=== PATIENT | male | born 1975 | race Caucasian/White ===

== ENCOUNTER → 2016-11-23 | Outpatient (CLI) | payer SELFPAY ==
--- NOTE | 2016-11-26 08:36 | RAD ---
EXAM DESCRIPTION: Chest,2 Views CLINICAL HISTORY: 41 years Male, CHEST PAIN, DYSPNEA COMPARISON: 04/04/2016 IMPRESSION: The heart remains borderline enlarged, with mild prominence of the central pulmonary vasculature. There is no confluent airspace consolidation, pleural effusion, or pneumothorax. No acute osseous abnormality. Electronically signed by: Ifeanyi Cancino MD 11/26/2016 8:35 AM CDT
== END | disposition home or self-care (01) ==
LOC: YCFC.O 16:41
PROVIDERS: ATTEND Nurse Practitioner Family
DX: R06.00 Dyspnea, unspecified (principal); R60.0 Localized edema; R07.9 Chest pain, unspecified

== ENCOUNTER 2016-12-21 12:31 | Inpatient (IN) | payer SELFPAY ==
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
--- NOTE | 2016-12-21 14:01 | RAD ---
EXAM DESCRIPTION: Chest,2 Views CLINICAL HISTORY: cough/hypoxia COMPARISON: November 23, 2016 FINDINGS: Two-view chest x-ray shows mild enlargement of the cardiac silhouette without pulmonary vascular congestion. The lungs are normally aerated and clear. Costophrenic angles are sharp. Osseous structures are unremarkable IMPRESSION: No radiographic evidence of acute cardiopulmonary disease. Electronically signed by: Raleigh Mahoney MD 12/21/2016 2:00 PM CDT
[2016-12-21] MEDS ORDERED: SODIUM CHLORIDE 0.9% 1000ML 1,000 ML IVS ONE (14:05)
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
[2016-12-21] MEDS ORDERED: ALBUTEROL SULFATE 2.5 MG/3 ML VIAL NEB PRN (18:22)
[2016-12-21] MEDS ORDERED: IV SET AND CAP CHANGE INJ INJ SCH (18:30)
[2016-12-21] MEDS ORDERED: methylPREDNISolone SODIUM SUC 125 MG/2 ML VIAL IV ONE (19:14)
[2016-12-21] MEDS ORDERED: HYDROcodone 7.5MG/APAP 325MG 1 EA TAB PO PRN (19:17)
[2016-12-21] MEDS ORDERED: ENOXAPARIN SODIUM 30 MG/0.3 ML SYG SUBCU SCH (19:30)
[2016-12-21] MEDS ORDERED: PANTOPRAZOLE SODIUM IV 40 MG VIAL IV SCH (19:30)
[2016-12-21] MEDS: levoFLOXacin 500MG IV 500 MG in PREMIX BAG 1 BAG IVPB SCH (19:30)
[2016-12-21] MEDS ORDERED: levoFLOXacin 500MG IV 100 ML IVPB ONE (19:33)
[2016-12-21] MEDS ORDERED: IPRATROPIUM/ALBUTEROL 3 ML VIAL INH SCH (20:00)
[2016-12-21] MEDS ORDERED: SODIUM CHLORIDE 0.9% 10 ML VIAL ONE (20:27)
[2016-12-21] MEDS: IPRATROPIUM/ALBUTEROL 3 ML VIAL INH SCH (20:42)
[2016-12-21] MEDS: SODIUM CHLORIDE 0.9% (FLUSH) 10 ML SYG IV PRN (21:39)
[2016-12-21] MEDS ORDERED: BISACODYL TAB 5 MG TAB PO SCH (22:14)
[2016-12-21] MEDS ORDERED: MORPHINE ER 15 MG TAB PO SCH (22:30)
[2016-12-21] MEDS: busPIRone HCL 5 MG TAB PO SCH (22:36)
[2016-12-21] MEDS ORDERED: QUEtiapine FUMARATE 100 MG TAB ONE (23:21)
[2016-12-21] MEDS ORDERED: QUEtiapine FUMARATE 100 MG TAB PO SCH (23:30)
[2016-12-21] MEDS ORDERED: ESCITALOPRAM 10 MG TAB PO SCH (23:30)
[2016-12-22] MEDS ORDERED: LORazepam 0.5 MG TAB PO PRN
[2016-12-22] MEDS ORDERED: MORPHINE ER 15 MG TAB PO SCH
[2016-12-22] MEDS ORDERED: BISACODYL TAB 5 MG TAB PO SCH
[2016-12-22] MEDS ORDERED: busPIRone HCL 5 MG TAB PO SCH
[2016-12-22] MEDS: IPRATROPIUM/ALBUTEROL 3 ML VIAL INH SCH ×2 (00:21→04:50)
--- NOTE | 2016-12-22 07:32 | RAD ---
EXAM: Two view chest. INDICATION: Chest pain. COMPARISON: Chest x-ray: 12/21/2016. FINDINGS: Cardiac silhouette: Enlarged Sully: Unremarkable. Lobar consolidation: None. Pleural effusion: None. Pneumothorax: None. Other: None. Bones: Unremarkable. Other: None. IMPRESSION: 1. No acute cardiopulmonary process. Electronically signed by: Theo Garcia MD 12/22/2016 7:31 AM CDT
[2016-12-22] MEDS ORDERED: busPIRone HCL 5 MG TAB ONE (08:23)
[2016-12-22] MEDS: IPRATROPIUM/ALBUTEROL 3 ML VIAL NEB SCH ×5 (08:25→21:05)
[2016-12-22] MEDS: FUROSEMIDE 40 MG TAB PO SCH (08:30)
[2016-12-22] MEDS: ENOXAPARIN SODIUM 30 MG/0.3 ML SYG SUBCU SCH (08:30)
[2016-12-22] MEDS: DOCUSATE SODIUM 100 MG CAP PO SCH (08:30)
[2016-12-22] MEDS: FENOFIBRIC ACID 135 MG CAP PO SCH (08:30)
[2016-12-22] MEDS: QUEtiapine FUMARATE 100 MG TAB PO SCH ×2 (08:30→21:13)
[2016-12-22] MEDS: LISINOPRIL 10 MG TAB PO SCH (08:30)
[2016-12-22] MEDS: ESCITALOPRAM 10 MG TAB PO SCH (08:31)
[2016-12-22] MEDS: busPIRone HCL 5 MG TAB PO SCH ×2 (08:31→21:12)
[2016-12-22] MEDS: MORPHINE ER 15 MG TAB PO SCH ×2 (08:31→21:14)
[2016-12-22] MEDS: SODIUM CHLORIDE 0.9% (FLUSH) 10 ML SYG IV SCH ×2 (08:42→19:59)
[2016-12-22] MEDS ORDERED: QUEtiapine FUMARATE 100 MG TAB PO SCH (09:00)
[2016-12-22] MEDS: HYDROcodone 7.5MG/APAP 325MG 1 EA TAB PO PRN ×3 (09:07→21:30)
[2016-12-22] MEDS ORDERED: NON-FORMULARY MEDICATION 1 EA MIS (Fexofenadine Hcl [Allegra Allergy] 180 MG) PO SCH (12:00)
[2016-12-22] MEDS ORDERED: NON-FORMULARY MEDICATION 1 EA MIS (Potassium Chloride [Micro-K] 8 MEQ) PO SCH (12:00)
[2016-12-22] MEDS ORDERED: ESCITALOPRAM 10 MG TAB PO SCH (12:00)
[2016-12-22] MEDS: LORazepam 0.5 MG TAB PO PRN ×2 (13:28→21:11)
[2016-12-22] MEDS ORDERED: DEXTROSE 50% 25 GM/50 ML SYG IV PRN (14:40)
[2016-12-22] MEDS ORDERED: GLUCAGON INJ 1 MG VIAL SUBCU PRN (14:40)
[2016-12-22] MEDS: methylPREDNISolone SODIUM SUC 125 MG/2 ML VIAL IV SCH ×2 (14:53→23:25)
[2016-12-22] MEDS ORDERED: methylPREDNISolone SODIUM SUC 125 MG/2 ML VIAL ONE ×2 (14:53→18:22)
--- NOTE | 2016-12-22 16:35 | PN ---
DATE: 12/22/16 SUPERVISING PHYSICIAN: Ruiz Willett M.D. SUBJECTIVE: The patient is sitting up in his bed watching television. States he feels much better and much improved since yesterday. In fact at this point, he was not even wearing his oxygen. Denies chest pain, shortness of breath, abdominal pain, nausea or vomiting, dizziness or headache. OBJECTIVE: VITAL SIGNS: He is afebrile, heart rate 99, blood pressure 126/73, respiratory rate 20, O2 sats dropped down to 87% on room air and after applying the oxygen it is up to around 92%. RESPIRATORY: Diminished breath sounds throughout especially at the bases. CARDIAC: Regular rate and rhythm. ABDOMEN : Soft, nondistended, non-tender. Bowel sounds are positive. EXTREMITIES: No cyanosis or clubbing. There is a trace of pedal edema on bilateral lower extremities. NEUROLOGIC: He is awake, alert and oriented times three. LABORATORY: WBCs have dropped to 13.5, hemoglobin 10.7, hematocrit 33.3, neutrophils 94. Chloride 100, glucose 178, alkaline phosphatase 38. Flu swab is negative. Preliminary blood culture, sputum culture and urine culture are no growth after 24 hours. Chest x-ray shows no acute cardiopulmonary processes. All other labs and films have been reviewed via the EMR. ASSESSMENT: 1. Acute exacerbation of chronic obstructive pulmonary disease. 2. Acute bronchitis. 3. Febrile illness. 4. Acute renal failure with a baseline creatinine of 1. He has a history of acute renal failure with multiple hospital admissions. 5. History of endocarditis about 3 years ago. 6. Hepatitis C. 7. Rheumatoid arthritis. 8. History of IV drug abuse. He has been drug free for 3 years. 9. History of tobacco abuse. 10. Depression and anxiety. 11. Gastroesophageal reflux disease. 12. History of chronic pain currently on multiple narcotic pain medications. PLAN: We will continue present supportive care, monitor his cultures. I have added lab for in the morning. He will continue with good pulmonary hygiene. His steroids are being tapered down and hopefully tomorrow he can go to oral steroids. We will continue to monitor the patient closely and followup as needed. #[id number] [facility]
[2016-12-22] MEDS: INSULIN LISPRO 100 UNITS/ML PEN SUBCU SCH ×2 (17:18→21:00)
[2016-12-22] MEDS ORDERED: levoFLOXacin 500MG IV 100 ML IVPB ONE (17:26)
--- NOTE | 2016-12-22 19:10 | PCM.CORE ---
Physician DVT/VTE - Prophylaxis Currently: Patient already on anticoagulation therapy - Nurse DVT Assessment & Total Each Risk Factor Represents 3 Points: Medical PT with Hx of SD, CHF, Severe infection/sepsis DVT Assessment Score: 3 - 5 or more Very High Risk Treatments: Early Ambulation *, Sequential Compression Device
[2016-12-22] MEDS: levoFLOXacin 500MG IV 500 MG in PREMIX BAG 1 BAG IVPB SCH (20:00)
[2016-12-22] MEDS ORDERED: QUETIAPINE FUMARATE 150 MG PO SCH (21:00)
[2016-12-22] MEDS: SODIUM CHLORIDE 0.9% (FLUSH) 10 ML SYG IV PRN ×2 (21:15→23:25)
[2016-12-22] MEDS: PANTOPRAZOLE SODIUM IV 40 MG VIAL IV SCH (21:15)
[2016-12-23] MEDS: IPRATROPIUM/ALBUTEROL 3 ML VIAL NEB SCH ×3 (04:45→13:30)
[2016-12-23] MEDS: SODIUM CHLORIDE 0.9% (FLUSH) 10 ML SYG IV PRN ×2 (06:27→21:37)
[2016-12-23] MEDS: methylPREDNISolone SODIUM SUC 125 MG/2 ML VIAL IV SCH (06:27)
[2016-12-23] MEDS: INSULIN LISPRO 100 UNITS/ML PEN SUBCU SCH ×4 (07:29→21:35)
[2016-12-23] MEDS: HYDROcodone 7.5MG/APAP 325MG 1 EA TAB PO PRN ×4 (08:05→22:15)
[2016-12-23] MEDS: busPIRone HCL 5 MG TAB PO SCH ×2 (08:59→21:31)
[2016-12-23] MEDS: MORPHINE ER 15 MG TAB PO SCH ×2 (08:59→21:34)
[2016-12-23] MEDS: LISINOPRIL 10 MG TAB PO SCH (09:00)
[2016-12-23] MEDS: FUROSEMIDE 40 MG TAB PO SCH (09:00)
[2016-12-23] MEDS: FENOFIBRIC ACID 135 MG CAP PO SCH (09:01)
[2016-12-23] MEDS: QUEtiapine FUMARATE 100 MG TAB PO SCH ×2 (09:01→21:32)
[2016-12-23] MEDS: ESCITALOPRAM 10 MG TAB PO SCH (09:01)
[2016-12-23] MEDS: ENOXAPARIN SODIUM 30 MG/0.3 ML SYG SUBCU SCH (09:02)
[2016-12-23] MEDS: SODIUM CHLORIDE 0.9% (FLUSH) 10 ML SYG IV SCH ×2 (09:02→20:27)
[2016-12-23] MEDS: DOCUSATE SODIUM 100 MG CAP PO SCH (09:02)
[2016-12-23] MEDS: LORazepam 0.5 MG TAB PO PRN ×2 (09:15→21:33)
--- NOTE | 2016-12-23 12:45 | PN ---
DATE: 12/23/16 SUPERVISING PHYSICIAN: Ruiz Willett M.D. SUBJECTIVE: The patient is asleep in his hospital bed. He is in no acute distress. He awakens easily. Continues complaints of occasional coughing and shortness of breath, especially with exertion, but he is feeling much improved. He denies any chest pain, abdominal pain, nausea or vomiting. OBJECTIVE: VITAL SIGNS: He is afebrile, heart rate 88, blood pressure 127/72, respiratory rate 20, O2 sat is 93% on 3 liters nasal cannula. RESPIRATORY: Diminished at the bases, otherwise essentially clear to auscultation. CARDIAC: Regular rate and rhythm. ABDOMEN: Soft, nondistended, non-tender. Bowel sounds are positive. NEUROLOGIC: He is awake, alert and oriented times three. LABORATORY: WBCs have decreased slightly to 15.5, H&H is stable at 10.6 and 33.3, neutrophils 91.7. Chemistry is basically within normal limits with the exception of his glucose which has run between 146 and 168 which is most likely due to his steroids. His preliminary sputum culture shows gram-negative rods, but his preliminary blood cultures are negative to date. All other labs and films have been reviewed via the EMR. ASSESSMENT: 1. Acute exacerbation of chronic obstructive pulmonary disease. 2. Acute bronchitis. 3. Febrile illness. 4. Acute renal failure with a baseline creatinine of 1. He has a history of acute renal failure with multiple hospital admissions. 5. History of endocarditis about 3 years ago. 6. Hepatitis C. 7. Rheumatoid arthritis. 8. History of IV drug abuse. He has been drug free for 3 years. 9. History of tobacco abuse. 10. Depression and anxiety. 11. Gastroesophageal reflux disease. 12. History of chronic pain currently on multiple narcotic pain medications. PLAN: We will continue present supportive care, including his antibiotics of Levaquin. We will monitor his cultures for sensitivities and change antibiotics as needed. Will order a chest x-ray and lab in the morning. I have decreased his steroids slightly. I have also ordered an ambulatory study daily. I have already consulted [employer] Master and hopefully Narda can facilitate his disability paperwork. We will continue to monitor the patient closely and followup as needed. Dr. Willett is the collaborating physician available for consultation. #[id number] [facility]
[2016-12-23] MEDS: methylPREDNISolone SODIUM SUC 40 MG/ML VIAL IV SCH ×2 (14:21→20:27)
[2016-12-23] MEDS: LEVALBUTEROL NEBS 1.25 MG/3 ML VIAL NEB PRN ×3 (16:22→23:30)
[2016-12-23] MEDS ORDERED: levoFLOXacin 500MG IV 100 ML IVPB ONE (19:52)
[2016-12-23] MEDS: levoFLOXacin 500MG IV 500 MG in PREMIX BAG 1 BAG IVPB SCH (20:17)
[2016-12-23] MEDS: PANTOPRAZOLE SODIUM IV 40 MG VIAL IV SCH (21:34)
[2016-12-24] MEDS: SODIUM CHLORIDE 0.9% (FLUSH) 10 ML SYG IV PRN (01:53)
[2016-12-24] MEDS: methylPREDNISolone SODIUM SUC 40 MG/ML VIAL IV SCH ×2 (01:53→09:20)
[2016-12-24] MEDS: LEVALBUTEROL NEBS 1.25 MG/3 ML VIAL NEB PRN ×2 (04:20→09:30)
[2016-12-24] MEDS: HYDROcodone 7.5MG/APAP 325MG 1 EA TAB PO PRN (05:27)
--- NOTE | 2016-12-24 07:03 | RAD ---
EXAM: Two view chest. INDICATION: Chest pain. COMPARISON: Chest x-ray: 12/22/2016. FINDINGS: Cardiac silhouette: Mildly enlarged Sully: Unremarkable. Lobar consolidation: None. Pleural effusion: None. Pneumothorax: None. Other: None. Bones: Unremarkable. Other: None. IMPRESSION: 1. No acute cardiopulmonary process. Electronically signed by: Theo Garcia MD 12/24/2016 7:02 AM CDT
[2016-12-24] MEDS: INSULIN LISPRO 100 UNITS/ML PEN SUBCU SCH ×2 (07:58→11:31)
[2016-12-24] MEDS ORDERED: HYDROcodone 7.5MG/APAP 325MG 1 EA TAB PO PRN (09:11)
[2016-12-24] MEDS: DOCUSATE SODIUM 100 MG CAP PO SCH (09:21)
[2016-12-24] MEDS: ESCITALOPRAM 10 MG TAB PO SCH (09:21)
[2016-12-24] MEDS: MORPHINE ER 15 MG TAB PO SCH (09:21)
[2016-12-24] MEDS: LISINOPRIL 10 MG TAB PO SCH (09:22)
[2016-12-24] MEDS: QUEtiapine FUMARATE 100 MG TAB PO SCH (09:22)
[2016-12-24] MEDS: ENOXAPARIN SODIUM 30 MG/0.3 ML SYG SUBCU SCH (09:22)
[2016-12-24] MEDS: busPIRone HCL 5 MG TAB PO SCH (09:22)
[2016-12-24] MEDS: FENOFIBRIC ACID 135 MG CAP PO SCH (09:22)
[2016-12-24] MEDS: FUROSEMIDE 40 MG TAB PO SCH (09:22)
[2016-12-24] MEDS: SODIUM CHLORIDE 0.9% (FLUSH) 10 ML SYG IV SCH (09:23)
[2016-12-24 10:10] VITALS: BP 151/79; TEMP 97.2; O2SAT 100
--- NOTE | 2016-12-24 10:45 | DS ---
DISCHARGE DIAGNOSIS: 1. Chronic obstructive pulmonary disease with an acute exacerbation requiring parental anti-inflammatories as well as bronchodilators and respiratory pulmonary hygiene. 2. Acute bronchitis with culture-proven Klebsiella pneumoniae requiring parenteral antibiotic therapy, to be continued orally. 3. Febrile illness, improved. 4. Acute renal failure, showing improvement after hydration. 5. History of incidences of infectious endocarditis about 3 years ago, requiring prolonged IV therapy. 6. History of hepatitis C, chronically. 7. Chronic rheumatoid arthritis. 8. History of IV drug abuse, now drug free for 3 years. 9. History of chronic tobacco abuse, now stopped. 10. Chronic depression and anxiety, on medication support. 11. History of gastroesophageal reflux disease. 12. History of chronic pain currently on multiple narcotic pain medications and encouraged to minimize. HOSPITAL COURSE: This 41-year-old, white male was admitted to the hospital from the Emergency Room because of an elevated temperature of 102 degrees starting the night before admission. Fairly significant cough with shortness of breath, wheezing was evident. Some nausea with dry heaving also present and acute renal injury noted on initial examination with creatinine of 2.19. His Beta natriuretic peptide was slightly elevated at 171 and white count elevated at almost 19,000. Chest x-ray showed no evidence of an acute cardiopulmonary process, yet the patient has need for significant intervention. Blood cultures were obtained, especially with the history of endocarditis. LABORATORY: Initial white count was 18,800, decreasing to 14,300 with hemoglobin 11.5 and normal platelet count. Neutrophils were 88%. D-dimer was below 230. Chemistries showed potassium 4.1 at discharge with CO2 33. Creatinine decreased from 2.19 fairly rapidly down to 0.85. Glucose 147 fasting on discharge. Lactic acid 0.7. Beta natriuretic peptide 171, albumin 3.7. Urinalysis generally clean and group A strep DNA negative. Blood cultures as well as group A strep throat cultures, urine culture negative. Sputum culture did reveal Klebsiella pneumoniae, sensitive to the fluoroquinolones. Chest x-ray shows no evidence of an acute pulmonary infiltrate or process. HOSPITAL COURSE: The patient was treated in the hospital with parenteral antibiotic therapy for 3 days and showed improvement with fairly large doses of corticosteroids required. Steroids will eventually be tapered in the outpatient department and followed closely. He will be continued on the antibiotics for his acute bronchitis based on culture and sensitivity. He will be continued on his bronchodilators. He was ready for outpatient followup with Dr. Mcgowan at the time of discharge. PLAN: The patient will have followup with Dr. Mcgowan in the clinic in a week or sooner. He will continue with his home medications and encouraged to decrease some of the opioids for chronic pain relief. Continue on Ventolin inhaler 1 puff q.i.d. for bronchodilation. Continue Levaquin 500 mg daily, #7 tablets given. Prednisone to be taken 10 mg 2 every morning for the next 5 to 6 days and then decrease to only 10 mg daily. He will avoid concentrated sugars in his diet. Return if not improving. Close followup is necessary. #[id number] [facility]
== END 2016-12-24 11:52 | disposition home or self-care (01) | DRG 191 ==
LOC: ER 12:31 → MS 16:28
PROVIDERS: ADMIT Nurse Practitioner Acute Care; ATTEND Emergency Medicine
DX: J44.1 Chronic obstructive pulmonary disease with (acute) exacerbation (principal); N17.9 Acute kidney failure, unspecified; Z68.42 Body mass index [BMI] 45.0-49.9, adult; J44.0 Chronic obstructive pulmonary disease with (acute) lower respiratory infection; J20.8 Acute bronchitis due to other specified organisms; R09.02 Hypoxemia; B96.1 Klebsiella pneumoniae [K. pneumoniae] as the cause of diseases classified elsewhere; B18.2 Chronic viral hepatitis C; M06.9 Rheumatoid arthritis, unspecified; F32.9 Major depressive disorder, single episode, unspecified; F41.9 Anxiety disorder, unspecified; G89.29 Other chronic pain; I10 Essential (primary) hypertension; K21.9 Gastro-esophageal reflux disease without esophagitis; Z79.891 Long term (current) use of opiate analgesic; E78.5 Hyperlipidemia, unspecified; E66.01 Morbid (severe) obesity due to excess calories; Z87.891 Personal history of nicotine dependence; Z86.79 Personal history of other diseases of the circulatory system; Z79.82 Long term (current) use of aspirin; Z79.899 Other long term (current) drug therapy; Z86.14 Personal history of Methicillin resistant Staphylococcus aureus infection

== ENCOUNTER → 2017-07-23 | Outpatient (CLI) | payer SELFPAY ==
--- NOTE | 2017-07-23 16:54 | RAD ---
EXAM: Chest,2 Views CLINICAL INDICATION: 41-year-old male with angina. TECHNIQUE: Two-view, PA and lateral projections of the chest were obtained. COMPARISON: 12/24/2016. FINDINGS: Stable cardiac and mediastinal silhouette. Heart size is normal. Lungs are clear without focal opacity, pneumothorax or pleural effusions. The visualized bones are within normal limits. IMPRESSION: No acute cardiopulmonary abnormalities. Electronically signed by: Akosua Driscoll MD 07/23/2017 4:53 PM [employer] Workstation: [id number]
== END | disposition home or self-care (01) ==
LOC: YCFC.O 15:52
PROVIDERS: ATTEND Nurse Practitioner Family
DX: R60.0 Localized edema (principal); I20.9 Angina pectoris, unspecified

== ENCOUNTER 2017-09-20 01:30 | Observation (INO) | payer SELFPAY ==
[2017-09-20] MEDS ORDERED: NITROGLYCERIN 0.4 MG 25 EA TAB SL ONE ×2 (01:46)
[2017-09-20] MEDS ORDERED: ASPIRIN TABLET 325 MG TAB PO ONE (01:46)
[2017-09-20] MEDS ORDERED: SODIUM CHLORIDE 0.9% (FLUSH) 10 ML SYG IV PRN ×2 (01:46→09:47)
--- NOTE | 2017-09-20 01:46 | ED.PDOC ---
History of Present Illness - General Chief Complaint: Chest Pain/AK Stated Complaint: chest pain Time Seen by Provider: 09/20/17 01:45 Source: patient Exam Limitations: no limitations - History of Present Illness Initial Comments: Hermilo Porter 42 y/o male bought by dad with sharp pain between his shoulder blades for the last 1-2 days taking deep breaths and goes away taking nitroglycerin which is not his routine medication lasting for about 2-3 minutes which had been intermittent initially but today getting more frequent took about 4 doses of nitroglycerin which gave him some relief but recurred again so he decided to be brought to ER by POV.Had 2 episodes of endocarditis 2 years ago and was transferred to a [facility] and JOCELYNN was done which showed it.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 Severity/Quality: sharp Location: other - interscapular area Chest Pain Radiation: other - chest Activities at Onset: activity - when it first started Prior Chest Pain/Cardiac Workup: echocardiography Improving Factors: nothing Worsening Factors: nothing Nitro Today/Relief: 0.4 mg x 4 Aspirin Treatment Today: 81 mg x 1 Associated Symptoms: shortness of breath Allergies/Adverse Reactions: Allergies Cephalosporins Allergy (Verified 09/23/15 18:48) Unknown Penicillins Allergy (Verified 09/23/15 18:48) Hives Home Medications: Ambulatory Orders Lisinopril 10 mg PO DAILY 01/10/14 Fexofenadine HCl [Adenike Allergy] 180 mg PO DAILY@119909/23/15 Furosemide [Lasix] 40 mg PO DAILY 09/23/15 Morphine Sulfate [Morphine Sulfate ER] 15 mg PO BID 09/23/15 Aspirin [Aspirin EC Low Dose] 81 mg PO DAILY@119904/04/16 Escitalopram [Lexapro] 15 mg PO DAILY@119904/04/16 Fenofibrate [Tricor] 145 mg PO DAILY@119904/04/16 HYDROcodone 7.5MG/APAP 325MG [[place] 7.5/325] 1 - 2 tab PO .Q4-6H PRN 04/04/16 Lorazepam 0.5 mg PO BID PRN 04/04/16 Omeprazole [Prilosec Cap] 20 mg PO DAILY@119904/04/16 busPIRone HCL [Buspar] 22.5 mg PO BID 04/04/16 Docusate Sodium [Colace] 100 mg PO DAILY 12/22/16 QUEtiapine FUMARATE [Seroquel] 100 mg PO DAILY 12/22/16 Quetiapine Fumarate [Seroquel] 150 mg PO BEDTIME 12/22/16 Albuterol Inhaler [Ventolin Hfa Inhaler] 1 puff INH QID #1 inh 12/24/16 levoFLOXacin [Levaquin] 500 mg PO QAM #7 tab 12/24/16 predniSONE [Prednisone] 20 mg PO QAM #20 tab 12/24/16 Review of Systems - Review of Systems Constitutional: States: no symptoms reported EENTM: States: no symptoms reported Respiratory: States: see HPI Cardiology: States: see HPI Gastrointestinal/Abdominal: States: no symptoms reported Genitourinary: States: no symptoms reported Musculoskeletal: States: joint pain - rheumatoid arthritis Skin: States: no symptoms reported Neurological: States: no symptoms reported Past Medical History (General) - Patient Medical History Hx Seizures: No Hx Stroke: No Hx Dementia: No Hx Asthma: No Hx of COPD: Yes Hx Cardiac Disorders: Yes - endocarditis Hx Congestive Heart Failure: No Hx Pacemaker: No Hx Hypertension: Yes Hx Thyroid Disease: No Hx Diabetes: No Hx Gastroesophageal Reflux: Yes Hx Renal Disease: Yes - CKD 3 Hx Cancer: No Hx of HIV: No Hx Hepatitis C: Yes Hx MRSA: Yes Hx Other PMH: Yes - rheumatoid arthritis MRSA Source:: heart Surgical History: other - tendon repair right forearm - Vaccination History Hx Tetanus, Diphtheria Vaccination: No Hx Influenza Vaccination: Yes Hx Pneumococcal Vaccination: No - Social History Hx Tobacco Use: Yes Hx Chewing Tobacco Use: No Hx Alcohol Use: No Hx Substance Use: No Hx Substance Use Treatment: No Hx Depression: Yes Hx Physical Abuse: No Hx Emotional Abuse: No Hx Suspected Abuse: No - Activities of Daily Living Patient Lives Alone: No - family - Female History Patient : No Family Medical History - Family History Father Family History: No Known Living Status: Still Living Hx Family Asthma: No Hx Family Congestive Heart Failure: Yes Hx Family Hypertension: Yes Hx Family Stroke: No Hx Cardiac Disease: Yes - dad-CABG age 36 Hx Family Diabetes: No Hx Family Cancer: No Hx Family;Other: Mom-Lupus Physical Exam - Physical Exam General Appearance: Alert, Comfortable, No apparent distress Eyes, Ears, Nose, Throat Exam: PERRL/EOMI, normal ENT inspection, pharynx normal Neck: non-tender, full range of motion, supple Respiratory: lungs clear, normal breath sounds, no respiratory distress Cardiovascular/Chest: normal peripheral pulses, regular rate, rhythm, no murmur Peripheral Pulses: radial,right: 2+, radial,left: 2+ Gastrointestinal/Abdominal: normal bowel sounds, non tender, soft Extremity: no pedal edema, no calf tenderness Neurologic: alert, normal mood/affect, oriented x 3 Skin Exam: normal color, warm/dry Progress - Progress Progress: 09/20/17 02:21 Last Vital Signs Temp 97.9 F 09/20/17 01:30 Pulse 115 H 09/20/17 01:30 Resp 18 09/20/17 01:30 BP 115/74 09/20/17 01:30 Pulse Ox 95 09/20/17 01:30 - Results/Orders Results/Orders: Laboratory Tests 09/20/17 09/20/17 09/20/17 02:00 02:00 02:00 WBC 11.8 H RBC 4.79 Hgb 12.8 L Hct 39.1 L MCV 81.6 MCH 26.7 L MCHC 32.9 L RDW 13.9 Plt Count 233 MPV 10.1 Absolute Neuts (auto) 10.20 H Absolute Lymphs (auto) 0.80 L Absolute Monos (auto) 0.60 Absolute Eos (auto) 0.10 Absolute Basos (auto) 0.00 Neutrophils % 86.3 H Lymphocytes % 6.8 L Monocytes % 5.4 Eosinophils % 1.2 Basophils % 0.3 PT 11.9 INR 1.050 PTT (SP) 32.3 D-Dimer, Quantitative < 230 Sodium 135 Potassium 4.6 Chloride 94 L Carbon Dioxide 30 Anion Gap 15.6 BUN 19 H Creatinine 3.47 H BUN/Creatinine Ratio 5.5 L Random Glucose 120 H Serum Osmolality 273.6 L Calcium 9.5 Phosphorus 5.8 H Magnesium 2.0 Total Bilirubin 0.3 Direct Bilirubin 0.1 Indirect Bilirubin 0.2 AST 21 ALT 13 Alkaline Phosphatase 37 L Creatine Kinase 110 CK-MB (CK-2) 1.4 CK-MB (CK-2) % Not Reportable Troponin I < 0.02 B-Natriuretic Peptide 7.1 Serum Total Protein 8.2 Albumin 4.6 - EKG/XRAY/CT EKG: Sinus, Tachy, Unchanged from - 03/12/2016 XRAY: chest - no acute abnormalities - Additional EKG/XRAY/Consults EKG #2: Sinus, Tachy, Unchanged from - 09/20/2017 Comments: HR-113;T-wave inversion anterolateral leads Departure - Departure Clinical Impression: Dehydration, History of bacterial endocarditis Acute on chronic renal failure Qualifiers: Acute renal failure type: unspecified Chronic kidney disease stage: stage 3 ( moderate) Qualified Code(s): N17.9 - Acute kidney failure, unspecified Chest pain Qualifiers: Chest pain type: unspecified Qualified Code(s): R07.9 - Chest pain, unspecified Time of Disposition: 05:34 Disposition: Admit Patient Condition: Fair Departure Forms: Patient Portal Self Enrollment Referrals: Jorge Mcgowan MD [Primary Care Provider] - 1-2 Weeks Home Medications: Ambulatory Orders Lisinopril 10 mg PO DAILY 01/10/14 Fexofenadine HCl [Adenike Allergy] 180 mg PO DAILY@119909/23/15 Furosemide [Lasix] 40 mg PO DAILY 09/23/15 Morphine Sulfate [Morphine Sulfate ER] 15 mg PO BID 09/23/15 Aspirin [Aspirin EC Low Dose] 81 mg PO DAILY@119904/04/16 Escitalopram [Lexapro] 15 mg PO DAILY@119904/04/16 Fenofibrate [Tricor] 145 mg PO DAILY@119904/04/16 HYDROcodone 7.5MG/APAP 325MG [[place] 7.5/325] 1 - 2 tab PO .Q4-6H PRN 04/04/16 Lorazepam 0.5 mg PO BID PRN 04/04/16 Omeprazole [Prilosec Cap] 20 mg PO DAILY@119904/04/16 busPIRone HCL [Buspar] 22.5 mg PO BID 04/04/16 Docusate Sodium [Colace] 100 mg PO DAILY 12/22/16 QUEtiapine FUMARATE [Seroquel] 100 mg PO DAILY 12/22/16 Quetiapine Fumarate [Seroquel] 150 mg PO BEDTIME 12/22/16 Albuterol Inhaler [Ventolin Hfa Inhaler] 1 puff INH QID #1 inh 12/24/16 levoFLOXacin [Levaquin] 500 mg PO QAM #7 tab 12/24/16 predniSONE [Prednisone] 20 mg PO QAM #20 tab 12/24/16 Decision To Admit - Decistion To Admit Decision to Admit Reason: Admit from ER - exacerbation of his chronic renal failure and unspecified chest pains Decision to Admit Date: 09/20/17 Decision to Admit Time: 05:28 - D/W Lauren cJ-FABRICE/Hospitalist
--- NOTE | 2017-09-20 02:25 | RAD ---
EXAM: Single view chest. INDICATION: Chest pain. COMPARISON: Chest x-ray: 07/23/2017. FINDINGS: Cardiac silhouette: Unremarkable. Sully: Unremarkable. Lobar consolidation: None. Pleural effusion: None. Pneumothorax: None. Other: None. Bones: Unremarkable. Other: None. IMPRESSION: 1. No acute cardiopulmonary process. Electronically signed by: Theo Garcia MD 09/20/2017 2:24 AM [facility] Workstation: [id number]
[2017-09-20] MEDS ORDERED: SODIUM CHLORIDE 0.45% 1000ML 1,000 ML IVS PRN (03:24)
[2017-09-20] MEDS ORDERED: SODIUM BICARBONATE SYRINGE 50 MEQ/50 ML SYG IV ONE (03:40)
[2017-09-20] MEDS ORDERED: ONDANSETRON INJ 4 MG/2 ML VIAL IV ONE (03:51)
[2017-09-20] MEDS ORDERED: ONDANSETRON INJ 4 MG/2 ML VIAL ONE (03:51)
[2017-09-20] MEDS ORDERED: MORPHINE SULFATE INJ 10 MG/ML VIAL IV PRN (09:47)
[2017-09-20] MEDS ORDERED: NITROGLYCERIN 0.4 MG 25 EA TAB SL PRN (09:47)
[2017-09-20] MEDS ORDERED: ACETAMINOPHEN 325 MG TAB PO PRN (09:47)
[2017-09-20] MEDS ORDERED: busPIRone HCL 5 MG TAB PO SCH (10:00)
[2017-09-20] MEDS ORDERED: QUEtiapine FUMARATE 100 MG TAB PO SCH ×2 (10:00→21:00)
[2017-09-20] MEDS ORDERED: LISINOPRIL 5 MG TAB PO SCH (10:00)
[2017-09-20] MEDS ORDERED: MORPHINE ER 15 MG TAB PO SCH (10:00)
[2017-09-20] MEDS ORDERED: IV SET AND CAP CHANGE INJ INJ SCH (10:00)
[2017-09-20] MEDS ORDERED: FUROSEMIDE 40 MG TAB PO SCH (10:00)
[2017-09-20] MEDS ORDERED: ESCITALOPRAM 10 MG TAB ONE (10:04)
[2017-09-20] MEDS ORDERED: ASPIRIN EC 81 MG TAB PO ONE (10:04)
[2017-09-20] MEDS ORDERED: OMEPRAZOLE CAP 20 MG CAP ONE (10:04)
[2017-09-20] MEDS ORDERED: LORATADINE 10 MG TAB PO ONE (10:08)
[2017-09-20] MEDS ORDERED: FENOFIBRIC ACID 135 MG CAP ONE (10:08)
[2017-09-20] MEDS ORDERED: HYDROcodone 7.5MG/APAP 325MG 1 EA TAB PO PRN ×3 (10:20→14:00)
[2017-09-20 11:43] VITALS: O2SAT 95
[2017-09-20] MEDS ORDERED: NON-FORMULARY MEDICATION 1 EA MIS (Fenofibrate [Tricor] 145 MG) PO SCH (12:00)
[2017-09-20] MEDS ORDERED: ESCITALOPRAM 10 MG TAB PO SCH (12:00)
[2017-09-20] MEDS ORDERED: ASPIRIN EC 81 MG TAB PO SCH (12:00)
[2017-09-20] MEDS ORDERED: NON-FORMULARY MEDICATION 1 EA MIS (Fexofenadine Hcl [Allegra Allergy] 180 MG) PO SCH (12:00)
[2017-09-20] MEDS ORDERED: LORATADINE 10 MG TAB PO SCH (12:00)
[2017-09-20] MEDS ORDERED: OMEPRAZOLE CAP 20 MG CAP PO SCH (12:00)
[2017-09-20] MEDS ORDERED: FENOFIBRIC ACID 135 MG CAP PO SCH (12:00)
--- NOTE | 2017-09-20 12:34 | CT ---
EXAM DESCRIPTION: Abdomen w/o Contrast: CT. CLINICAL HISTORY: amy flank pain; dysuria; hematuria; elevated Creat; COMPARISON: None. TECHNIQUE: Spiral-axial scans at 5.0 mm intervals through the abdomen and pelvis. Coronal and sagittal 2.0mm reconstructions. No IV or oral contrast. Total Exam DLP: 864.75 mGy-centimeters. This exam was performed according to our departmental CT dose-optimization program which includes automated exposure control, adjustment of the mA and/or kV according to patient size and/or use of iterative reconstruction technique; to reduce radiation dose to as low as reasonably achievable (ALARA). FINDINGS: Kidneys and Ureters: 1.5 x 1 cm cortical cyst on the posterior left kidney. No radiodense stones bilaterally. No hydronephrosis or hydroureter. No abnormal perirenal or periureteral stranding. Pelvic Organs: No radiodense stones in the urinary bladder. Prostate gland is abutting the urinary bladder and the seminal vesicles. No fluid in the anterior peritoneal reflection. Lung and pleura bases: Small pleural scar abutting the lower right middle lobe. Minimal pleural thickening in the bases but no infiltrates. Liver, spleen, stomach, and adrenal glands: Solid organs are negative. Stomach distended by gas and fluid. Pancreas, Gallbladder, Ducts: Minimal fatty pancreas. Gallbladder present. Duct is unremarkable. Aorta: Outer caliber is normal with minimal atherosclerotic calcification distally. Small Bowel: Unremarkable. Terminal Ileum/Cecum: Normal caliber. Mostly gas. Normal caliber of the appendix. Normal density of the surrounding fat. Colon: Gas and slightly radiodense fecal material with no significant air-fluid levels. Moderate redundancy of the sigmoid and descending colon. Mesentery: No stranding or free intraperitoneal air. No ascites. Spine and Bony Pelvis: Curvature of the thoracolumbar spine may be due to positioning. Assuming that the inferior rib pair articulates with T12, there are 4 lumbar type vertebra and a transitional lumbosacral segment. Bilateral fusion with sacrum. Almost completely closed rudimentary L5-S1 disc space. Abdominal Wall/Back Soft Tissues: Diastases at the umbilicus but not containing bowel. Fatty left inguinal hernia not containing bowel. Midline anterior abdominal wall raising may be absent anterior to the xiphoid process of the sternum. IMPRESSION: 1. No acute bilateral kidney process is noted. No radiodense stones or hydronephrosis in the kidneys or ureter. No radiodense stones in the urinary bladder. 1.5 cm cortical cyst on the posterior left kidney. 2. Transitional lumbosacral segment or sacralized L5. This can result in abnormal biomechanics and be a source of low back pain. 3. Abdominal wall diastases at the umbilicus and at the xiphoid process but no definite hernia. Small fatty left inguinal hernia not containing bowel. The findings were discussed directly by telephone with Dr. Darwin Leyva at approximately 1230 hours on 09/20/2017. Electronically signed by: Mele Bautista MD 09/20/2017 12:33 PM [facility]
[2017-09-20 14:29] VITALS: BP 112/78; TEMP 98
[2017-09-20] MEDS ORDERED: SODIUM CHLORIDE 0.9% (FLUSH) 10 ML SYG IV SCH (21:00)
[2017-09-21] MEDS ORDERED: ASPIRIN TABLET 325 MG TAB PO SCH (09:00)
[2017-09-21] MEDS ORDERED: DOCUSATE SODIUM 100 MG CAP PO SCH (09:00)
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
== END 2017-09-20 17:15 | disposition home or self-care (01) ==
LOC: ER 01:30 → INTOOBSV 07:40 → MS 07:40
PROVIDERS: ADMIT Nurse Practitioner Family; ATTEND Nurse Practitioner Family
DX: R07.89 Other chest pain (principal); N17.9 Acute kidney failure, unspecified; E86.0 Dehydration; R06.02 Shortness of breath; I12.9 Hypertensive chronic kidney disease with stage 1 through stage 4 chronic kidney disease, or unspecified chronic kidney disease; N18.3 Chronic kidney disease, stage 3 (moderate); J44.9 Chronic obstructive pulmonary disease, unspecified; M06.9 Rheumatoid arthritis, unspecified; E78.5 Hyperlipidemia, unspecified; K21.9 Gastro-esophageal reflux disease without esophagitis; E66.01 Morbid (severe) obesity due to excess calories; F32.9 Major depressive disorder, single episode, unspecified; G89.29 Other chronic pain; F17.210 Nicotine dependence, cigarettes, uncomplicated; F15.21 Other stimulant dependence, in remission; Z68.41 Body mass index [BMI] 40.0-44.9, adult; Z86.19 Personal history of other infectious and parasitic diseases; Z79.891 Long term (current) use of opiate analgesic; Z79.82 Long term (current) use of aspirin; Z79.899 Other long term (current) drug therapy; Z88.0 Allergy status to penicillin; Z88.3 Allergy status to other anti-infective agents
CPT/HCPCS: 36415 ×2; 71045; 74150; 80048 ×2; 80076; 80307; 81001; 82550; 82553; 83880; 84100; 84484 ×3; 85025; 85379; 85610; 85730; 87070; 87086; 93005 ×3; 94760; 96361 ×2; 96374; 99284; J2405; J7799

== ENCOUNTER 2017-09-21 10:46 | Emergency (ER) | payer SELFPAY ==
[2017-09-21 11:08] VITALS: TEMP 100.2
--- NOTE | 2017-09-21 11:20 | ED.PDOC ---
History of Present Illness - General Chief Complaint: General Stated Complaint: jittery and involuntary jerking of arms Time Seen by Provider: 09/21/17 10:50 Source: patient Exam Limitations: no limitations Additional Information: PT IS CONCERNED HE MAY HAVE RENAL FAILURE. HE HAS BEEN AGITATED AND SHAKY WHICH HE HAS GOTTEN IN THE PAST WITH HIS RENAL DZ. - History of Present Illness Timing/Duration: other - 2 DAYS. WAS SEEN HERE YESTERDAY Severity: moderate Improving Factors: nothing Worsening Factors: nothing Allergies/Adverse Reactions: Allergies Cephalosporins Allergy (Verified 09/21/17 11:08) Unknown Penicillins Allergy (Verified 09/21/17 11:08) Hives Home Medications: Ambulatory Orders Lisinopril 10 mg PO DAILY 01/10/14 Fexofenadine HCl [Adenike Allergy] 180 mg PO DAILY@1200 09/23/15 Furosemide [Lasix] 40 mg PO DAILY 09/23/15 Morphine Sulfate [Morphine Sulfate ER] 15 mg PO BID 09/23/15 Aspirin [Aspirin EC Low Dose] 81 mg PO DAILY@1200 04/04/16 Escitalopram [Lexapro] 15 mg PO DAILY@1200 04/04/16 Fenofibrate [Tricor] 145 mg PO DAILY@1200 04/04/16 HYDROcodone 7.5MG/APAP 325MG [[place] 7.5/325] 1 - 2 tab PO .Q4-6H PRN 04/04/16 Lorazepam 0.5 mg PO BID PRN 04/04/16 Omeprazole [Prilosec Cap] 20 mg PO DAILY@1200 04/04/16 busPIRone HCL [Buspar] 22.5 mg PO BID 04/04/16 Docusate Sodium [Colace] 100 mg PO DAILY 12/22/16 QUEtiapine FUMARATE [Seroquel] 100 mg PO DAILY 12/22/16 Quetiapine Fumarate [Seroquel] 200 mg PO BEDTIME 12/22/16 Albuterol Inhaler [Ventolin Hfa Inhaler] 1 puff INH QID PRN 09/20/17 Review of Systems - Review of Systems Constitutional: Denies: chills, fever EENTM: States: no symptoms reported Respiratory: States: cough, short of breath. Denies: wheezing Cardiology: Denies: chest pain, palpitations, syncope Gastrointestinal/Abdominal: Denies: abdominal pain, diarrhea, nausea, vomiting Genitourinary: States: no symptoms reported Musculoskeletal: States: no symptoms reported Skin: States: other - SWEATY Neurological: States: tremors. Denies: weakness Endocrine: States: excessive sweating. Denies: flushing, intolerance to cold, intolerance to heat Hematologic/Lymphatic: States: no symptoms reported Past Medical History (General) - Patient Medical History Hx Seizures: No Hx Stroke: No Hx Dementia: No Hx Asthma: No Hx of COPD: Yes Hx Cardiac Disorders: Yes - ENDOCARDITIS Hx Congestive Heart Failure: No Hx Pacemaker: No Hx Hypertension: Yes Hx Thyroid Disease: No Hx Diabetes: No Hx Gastroesophageal Reflux: Yes Hx Renal Disease: Yes - CKD 3 Hx Cancer: No Hx of HIV: No Hx Hepatitis C: Yes Hx MRSA: Yes MRSA Source:: Sputum Surgical History: other - Vaccination History Hx Tetanus, Diphtheria Vaccination: No Hx Influenza Vaccination: No Hx Pneumococcal Vaccination: No Immunizations Up to Date: No - Social History Hx Tobacco Use: No Hx Chewing Tobacco Use: No Hx Alcohol Use: No Hx Substance Use: No Hx Substance Use Treatment: No Hx Depression: Yes Feels Threatened In Home Enviroment: No Feels Threatened In a Relationship: No Hx Physical Abuse: No Hx Emotional Abuse: No Hx Suspected Abuse: No - Female History Patient is a Female of Child Bearing Age (10 -59 yrs old): No Patient : No - Triage Comment ED Triage Comment: Pt reports feeling "off", and father is at bedside Family Medical History - Family History Father Family History: No Known Living Status: Still Living Hx Family Asthma: No Hx Family Congestive Heart Failure: Yes Hx Family Hypertension: Yes Hx Family Stroke: No Hx Cardiac Disease: Yes - dad-CABG age 36 Hx Family Diabetes: No Hx Family Cancer: No Hx Family;Other: Mom-Lupus Physical Exam - Physical Exam General Appearance: Alert, Anxious Eye Exam: bilateral normal Ears, Nose, Throat: hearing grossly normal, normal ENT inspection Neck: non-tender, full range of motion, supple Respiratory: lungs clear, normal breath sounds, other - SATS 84% RA (HYPOXIC) Cardiovascular/Chest: no murmur, tachycardia Gastrointestinal/Abdominal: normal bowel sounds, non tender, soft, no organomegaly Back Exam: normal inspection, no CVA tenderness Extremity: normal range of motion, non-tender, no pedal edema, no calf tenderness Neurologic: alert, other - ANXIOUS Skin Exam: normal color, diaphoresis Lymphatic: no adenopathy Progress - Progress Progress: 09/21/17 12:00 PT WITH SIGNIFICANT RESP ACIDOSIS AND HYPERCAPNEA. WILL START BIPAP. 09/21/17 12:57 PT APPEARS MORE CONFUSED. WILL REPEAT ABG AND INTUBATE IF NECESSARY. CANNOT GET CTA DUE TO LACK OF IV ACCESS. WILL NEED CENTRAL LINE PLACEMENT. D/W DR STEVAN [facility] ACCEPTS PT IN TRANSFER. WILL TREAT EMPIRICALLY WITH [facility] 09/21/17 15:09 [facility] HERE TO TAKE PT. INTUBATED BY ANESTHESIA I WAS IN A CODE. CENTRAL LINE DEFERRED PT HAS HUMERAL I/O PLACED BY [employer] [facility]. [facility] GIVEN PRIOR TO D/C - EKG/XRAY/CT EKG: Sinus, Tachy - RATE 108, M; AXOS. NL INTERVALS, , nonspecific ST T wave Chg , Unchanged from - 07/18/17 Departure - Departure Clinical Impression: Respiratory acidosis, Hypoxemia Respiratory failure Qualifiers: Chronicity: acute Respiratory failure complication: hypercapnia Qualified Code( s): J96.02 - Acute respiratory failure with hypercapnia ICD-10 Supporting Text: DDX: PE Time of Disposition: 15:15 Disposition: Transfer to Hospital Condition: Serious Departure Forms: ED Discharge - Pt. Copy, Patient Portal Self Enrollment Referrals: Jorge Mcgowan MD [Primary Care Provider] - 1-2 Weeks Home Medications: Ambulatory Orders Lisinopril 10 mg PO DAILY 01/10/14 Fexofenadine HCl [Adenike Allergy] 180 mg PO DAILY@119909/23/15 Furosemide [Lasix] 40 mg PO DAILY 09/23/15 Morphine Sulfate [Morphine Sulfate ER] 15 mg PO BID 09/23/15 Aspirin [Aspirin EC Low Dose] 81 mg PO DAILY@119904/04/16 Escitalopram [Lexapro] 15 mg PO DAILY@119904/04/16 Fenofibrate [Tricor] 145 mg PO DAILY@119904/04/16 HYDROcodone 7.5MG/APAP 325MG [[place] 7.5/325] 1 - 2 tab PO .Q4-6H PRN 04/04/16 Lorazepam 0.5 mg PO BID PRN 04/04/16 Omeprazole [Prilosec Cap] 20 mg PO DAILY@119904/04/16 busPIRone HCL [Buspar] 22.5 mg PO BID 04/04/16 Docusate Sodium [Colace] 100 mg PO DAILY 12/22/16 QUEtiapine FUMARATE [Seroquel] 100 mg PO DAILY 12/22/16 Quetiapine Fumarate [Seroquel] 200 mg PO BEDTIME 12/22/16 Albuterol Inhaler [Ventolin Hfa Inhaler] 1 puff INH QID PRN 09/20/17 Critical Care Note - Critical Care Note Total Time (mins): 75 Comments: EVENT: SOB, AGGITATION CELENA: RESPIRATORY, CARDIOVASCULAR INTERVENTION: INTUBATION FINDINGS: PCO2 76, PH 7.2
--- NOTE | 2017-09-21 11:34 | RAD ---
Procedure: XR CHEST 1 VIEW Exam Date: 09/21/2017 11:04 AM [employer] Ordering Provider: Taz Andino Clinical Indication: HYPOXEMIA Comparison: None Findings: Lungs are clear. Heart size is within normal limits. No acute osseous abnormality. Impression: No acute pulmonary process. Electronically signed by: Nadine Brewster MD 09/21/2017 11:32 AM [employer]
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
[2017-09-21] MEDS ORDERED: PROPOFOL 200 MG/20 ML VIAL IV ONE (13:46)
[2017-09-21] MEDS ORDERED: SUCCINYLCHOLINE CHLORIDE 200 MG/10 ML VIAL ONE (13:46)
[2017-09-21] MEDS ORDERED: MIDAZOLAM INJ 5 MG/5 ML VIAL IV ONE (14:12)
--- NOTE | 2017-09-21 15:04 | RAD ---
Procedure: XR CHEST 1 VIEW Exam Date: 09/21/2017 2:30 PM [employer] Ordering Provider: Taz Andino Clinical Indication: ET tube placement, S/P intubation Comparison: 09/21/2017 Findings: Lung volumes are low bilaterally and there is bilateral mostly suprahilar interstitial septal prominence. No significant pleural effusion or pneumothorax is present. The heart size is enlarged. ET tube tip terminates at the level of the clavicles. The nasogastric tube is in the stomach. Impression: Support apparatus in expected position. Bilaterally low lung volumes and suprahilar atelectasis. Electronically signed by: Nadine Brewster MD 09/21/2017 3:03 PM [employer]
[2017-09-21] MEDS ORDERED: ENOXAPARIN SODIUM 100 MG/ML SYG SUBCU ONE (15:11)
[2017-09-21 15:40] VITALS: BP 117/85; O2SAT 96
== END 2017-09-21 15:20 | disposition short-term general hospital (02) ==
LOC: ER 10:46
DX: E87.2 Acidosis (principal); J96.02 Acute respiratory failure with hypercapnia; R09.02 Hypoxemia; J44.9 Chronic obstructive pulmonary disease, unspecified; I12.9 Hypertensive chronic kidney disease with stage 1 through stage 4 chronic kidney disease, or unspecified chronic kidney disease; N18.3 Chronic kidney disease, stage 3 (moderate); I38 Endocarditis, valve unspecified; B19.20 Unspecified viral hepatitis C without hepatic coma; Z79.82 Long term (current) use of aspirin; Z79.899 Other long term (current) drug therapy
CPT/HCPCS: 31500; 36415; 36600; 71045; 80053; 82803; 82805; 84484; 85025; 85610; 85730; 87040; 93005; 94002; 94660; 94770; J0330; J1650; J2060; J2250; J3490

== ENCOUNTER → 2017-10-03 | Outpatient (CLI) | payer SELFPAY | END | disposition home or self-care (01) | LOC: GMAM 12:37 | PROVIDERS: ATTEND Family Medicine | DX: J96.00 Acute respiratory failure, unspecified whether with hypoxia or hypercapnia (principal) ==

== ENCOUNTER 2019-03-22 21:01 | Emergency (ER) | payer SELFPAY ==
--- NOTE | 2019-03-22 21:13 | ED.PDOC ---
History of Present Illness - General Stated Complaint: chest pain Time Seen by Provider: 03/22/19 21:10 Source: patient, family Exam Limitations: no limitations - History of Present Illness Initial Comments: Pt has had substernal sharp chest pain x 3 hrs with radiation to back, L jaw and L arm. Pt had mild SOB and nausea earlier. He put on a nitro patch ( which belong to his father) at time of onset without help. Pt has been having these pains frequently for months to years. 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 He says he is not using drugs now Timing/Duration: 1-3 hours Severity/Quality: severe, aching, burning Location: substernal Chest Pain Radiation: jaw, arms, back Activities at Onset: none Prior Chest Pain/Cardiac Workup: no prior cardiac workup Improving Factors: nothing Worsening Factors: nothing Nitro Today/Relief: no relief Associated Symptoms: back pain, shortness of breath Allergies/Adverse Reactions: Allergies Cephalosporins Allergy (Verified 09/21/17 11:08) Unknown Penicillins Allergy (Verified 03/22/19 21:34) Hives Home Medications: Ambulatory Orders Lisinopril 10 mg PO DAILY 01/10/14 Fexofenadine HCl [Adenike Allergy] 180 mg PO DAILY@1200 09/23/15 Furosemide [Lasix] 40 mg PO DAILY 09/23/15 Morphine Sulfate [Morphine Sulfate ER] 15 mg PO BID 09/23/15 Aspirin [Aspirin EC Low Dose] 81 mg PO DAILY@1200 04/04/16 Escitalopram [Lexapro] 15 mg PO DAILY@1200 04/04/16 Fenofibrate [Tricor] 145 mg PO DAILY@119904/04/16 HYDROcodone 7.5MG/APAP 325MG [[place] 7.5/325] 1 - 2 tab PO .Q4-6H PRN 04/04/16 Lorazepam 0.5 mg PO BID PRN 04/04/16 Omeprazole [Prilosec Cap] 20 mg PO DAILY@119904/04/16 busPIRone HCL [Buspar] 22.5 mg PO BID 04/04/16 Docusate Sodium [Colace] 100 mg PO DAILY 12/22/16 QUEtiapine FUMARATE [Seroquel] 100 mg PO DAILY 12/22/16 Quetiapine Fumarate [Seroquel] 200 mg PO BEDTIME 12/22/16 Albuterol Inhaler [Ventolin Hfa Inhaler] 1 puff INH QID PRN 09/20/17 Orphenadrine Citrate [Orphenadrine Citrate ER] 100 mg PO BID PRN #15 tab 03/22/19 Review of Systems - Review of Systems Constitutional: States: malaise. Denies: diaphoresis EENTM: States: no symptoms reported Respiratory: States: short of breath. Denies: cough Cardiology: States: chest pain. Denies: edema, syncope Gastrointestinal/Abdominal: States: nausea. Denies: abdominal pain, vomiting Genitourinary: States: no symptoms reported Musculoskeletal: States: no symptoms reported Skin: States: no symptoms reported Neurological: States: no symptoms reported Endocrine: States: no symptoms reported Past Medical History (General) - Patient Medical History Hx Seizures: No Hx Stroke: No Hx Dementia: No Hx Asthma: No Hx of COPD: Yes Hx Cardiac Disorders: Yes - ENDOCARDITIS Hx Congestive Heart Failure: No Hx Pacemaker: No Hx Hypertension: Yes Hx Thyroid Disease: No Hx Diabetes: No Hx Gastroesophageal Reflux: Yes Hx Renal Disease: Yes - CKD 3 Hx Cancer: No Hx of HIV: No Hx Hepatitis C: Yes Hx MRSA: Yes MRSA Source:: Sputum - Vaccination History Hx Tetanus, Diphtheria Vaccination: No Hx Influenza Vaccination: No Hx Pneumococcal Vaccination: No - Social History Hx Tobacco Use: No Hx Chewing Tobacco Use: No Hx Alcohol Use: No Hx Substance Use: No Hx Substance Use Treatment: No Hx Depression: Yes Hx Physical Abuse: No Hx Emotional Abuse: No Hx Suspected Abuse: No - Female History Patient : No Family Medical History - Family History Father Family History: No Known Living Status: Still Living Hx Family Asthma: No Hx Family Congestive Heart Failure: Yes Hx Family Hypertension: Yes Hx Family Stroke: No Hx Cardiac Disease: Yes - dad-CABG age 36 Hx Family Diabetes: No Hx Family Cancer: No Hx Family;Other: Mom-Lupus Physical Exam - Physical Exam General Appearance: Alert, Anxious Eyes, Ears, Nose, Throat Exam: PERRL/EOMI, pharynx normal Neck: non-tender, supple, normal inspection Respiratory: chest non-tender, lungs clear, normal breath sounds, no respiratory distress Cardiovascular/Chest: regular rate, rhythm, no murmur Gastrointestinal/Abdominal: normal bowel sounds, non tender, soft Extremity: normal inspection, no pedal edema Neurologic: alert, normal mood/affect, oriented x 3 Skin Exam: normal color, warm/dry Lymphatic: no adenopathy Progress - EKG/XRAY/CT EKG: Sinus Comments: T waves inverted in precordium : rate 100, IA 148, QRS 78, QTc 448 Departure - Departure Clinical Impression: Chest pain due to psychological stress Disposition: Discharge to Home or Self Care Referrals: Jorge Mcgowan MD [Primary Care Provider] - 1-2 Weeks Prescriptions: Orphenadrine Citrate [Orphenadrine Citrate ER] 100 mg PO BID PRN #15 tab PRN Reason: Muscle Spasms Home Medications: Ambulatory Orders Lisinopril 10 mg PO DAILY 01/10/14 Fexofenadine HCl [Adenike Allergy] 180 mg PO DAILY@119909/23/15 Furosemide [Lasix] 40 mg PO DAILY 09/23/15 Morphine Sulfate [Morphine Sulfate ER] 15 mg PO BID 09/23/15 Aspirin [Aspirin EC Low Dose] 81 mg PO DAILY@119904/04/16 Escitalopram [Lexapro] 15 mg PO DAILY@119904/04/16 Fenofibrate [Tricor] 145 mg PO DAILY@119904/04/16 HYDROcodone 7.5MG/APAP 325MG [[place] 7.5/325] 1 - 2 tab PO .Q4-6H PRN 04/04/16 Lorazepam 0.5 mg PO BID PRN 04/04/16 Omeprazole [Prilosec Cap] 20 mg PO DAILY@119904/04/16 busPIRone HCL [Buspar] 22.5 mg PO BID 04/04/16 Docusate Sodium [Colace] 100 mg PO DAILY 12/22/16 QUEtiapine FUMARATE [Seroquel] 100 mg PO DAILY 12/22/16 Quetiapine Fumarate [Seroquel] 200 mg PO BEDTIME 12/22/16 Albuterol Inhaler [Ventolin Hfa Inhaler] 1 puff INH QID PRN 09/20/17 Orphenadrine Citrate [Orphenadrine Citrate ER] 100 mg PO BID PRN #15 tab 03/22/19
[2019-03-22] MEDS ORDERED: SODIUM CHLORIDE 0.9% (FLUSH) 10 ML SYG IV PRN (21:27)
[2019-03-22] MEDS ORDERED: ALUM & MAG HYDROX-SIMETHICONE 30 ML, LIDOCAINE VISCOUS 2% 15 ML PO ONE ×2 (21:29)
[2019-03-22] MEDS ORDERED: LIDOCAINE HCL 2% (MOUTH-THROAT) 15 ML UD ONE (21:37)
[2019-03-22] MEDS ORDERED: ALUM & MAG HYDROX-SIMETHICONE 30 ML UD ONE (21:37)
--- NOTE | 2019-03-22 21:59 | RAD ---
EXAM: XR Chest, 1 View CLINICAL HISTORY: The patient is 43 years old and is Male; chest pain TECHNIQUE: Frontal view of the chest. COMPARISON: Chest radiograph September 21, 2017. FINDINGS: LUNGS: Unremarkable. No consolidation. PLEURAL SPACE: Unremarkable. No pneumothorax. HEART: Unremarkable. No cardiomegaly. MEDIASTINUM: Unremarkable. BONES/JOINTS: Unremarkable. IMPRESSION: No acute cardiopulmonary process. Electronically signed by: Soniya Barry MD 03/22/2019 9:57 PM CDT
[2019-03-23] VITALS: BP 117/95; TEMP 98.1; O2SAT 96
== END 2019-03-23 | disposition home or self-care (01) ==
LOC: ER 21:01
DX: R07.2 Precordial pain (principal); F43.9 Reaction to severe stress, unspecified; N18.3 Chronic kidney disease, stage 3 (moderate); I12.9 Hypertensive chronic kidney disease with stage 1 through stage 4 chronic kidney disease, or unspecified chronic kidney disease; K21.9 Gastro-esophageal reflux disease without esophagitis; F32.9 Major depressive disorder, single episode, unspecified; J44.9 Chronic obstructive pulmonary disease, unspecified; F19.11 Other psychoactive substance abuse, in remission; Z82.49 Family history of ischemic heart disease and other diseases of the circulatory system; Z86.19 Personal history of other infectious and parasitic diseases; Z79.899 Other long term (current) drug therapy; Z79.82 Long term (current) use of aspirin; Z88.1 Allergy status to other antibiotic agents; Z88.0 Allergy status to penicillin
CPT/HCPCS: 36415; 71045; 80048; 80076; 82550; 82553; 83880; 84484; 85025; 85379; 85610; 85730; 93005; 94760; J2060

== ENCOUNTER → 2020-07-25 | Outpatient (CLI) | payer OTHER | LOC: GMAM 12:11 | PROVIDERS: ATTEND Family Medicine | DX: B34.2 Coronavirus infection, unspecified (principal); R09.02 Hypoxemia; R71.8 Other abnormality of red blood cells ==

== ENCOUNTER → 2020-07-28 | Outpatient (CLI) | payer OTHER | LOC: GMAM 16:52 | PROVIDERS: ATTEND Family Medicine | DX: B34.2 Coronavirus infection, unspecified (principal); R71.8 Other abnormality of red blood cells; R09.02 Hypoxemia ==